=== PATIENT | female | born 1975 | race Caucasian/White ===

== ENCOUNTER 2022-09-08 12:04 | Emergency (ER) | payer OTHER, SELFPAY ==
[2022-09-08 12:10] VITALS: BP 141/80; PULSE 91; RESP 15; TEMP 36.4; O2SAT 97; BMI 28.6
--- NOTE | 2022-09-08 14:10 | DI.CT.S_ITS ---
PROCEDURE: CT HEAD/BRAIN WO CON INDICATIONS: Sudden, intermittent and severe headache TECHNIQUE: Noncontrast 4.5 mm thick angled axial sections acquired from the foramen magnum to the vertex, with coronal and sagittal reformats. For radiation dose reduction, the following was used: automated exposure control, adjustment of mA and/or kV according to patient size. COMPARISON: None. FINDINGS: Image quality: Excellent. CSF spaces: Basal cisterns are patent. No extra-axial fluid collections. Ventricles are normal in size and shape. Brain: No midline shift. No intracranial masses or hemorrhage. Walters-white matter interface is normal. Skull and face: Calvarium and visualized facial bones are intact, without suspicious lesions. Sinuses: Visualized sinuses and mastoids are clear. IMPRESSION: Normal for age, source of current severe headache symptoms is not seen. Dictated by: Branden Fierro M.D. on 09/08/2022 at 14:52 Approved by: Branden Fierro M.D. on 09/08/2022 at 14:52
--- NOTE | 2022-09-08 14:13 | ED.HA ---
HPI - Headache <TOREY Weiner - Last Filed: 09/08/22 16:41> General Chief Complaint: Headache Stated Complaint: abnormal severe head pain t-3 Time Seen by Provider: 09/08/22 14:00 Mode of arrival: Ambulatory History of Present Illness HPI Narrative: This is a 47-year-old female presents to the emergency department with complaint of a sudden in the most severe headache she is ever had come on 3 days ago, she states it was focal on the left side of her head and she was at rest when it happened. States it was so severe and painful that she was scared. She states it went away afterwards. The next day she states it returned but it was on both sides of her head and then it had gone away. She denies any other associated symptoms, denies any headache symptoms at this time. Endorses a history of migraines but states this is much different. She states that she took some Tylenol and it did not do anything and typically Tylenol is what she takes for her migraine headaches home. She has vision changes, dizziness, lightheadedness, recent trauma, brain fog, ringing in her ear respiratory symptoms including congestion, sore throat or cough. Denies urinary frequency or urgency, has a history of a hysterectomy. Denies nausea vomiting, neck pain or history of hypertension. No other medical problems. Patient denies any other symptoms. States that she has had the smell of ammonia in her nose for approximately 1 month, states that she was looking this up online and was very scared for neurologic complications. She states this is why she came to the emergency department today. Related Data Previous Rx's Medication Instructions Recorded ondansetron 4 mg disintegrating 4 mg PO Q8H PRN nausea and 09/08/22 tablet vomiting #10 tabs Allergies Allergy/AdvReac Type Severity Reaction Status Date / Time No Known Drug Allergies Allergy Verified 09/08/22 12:10 Review of Systems <TOREY Weiner - Last Filed: 09/08/22 16:41> Review of Systems ROS Unobtainable: All systems reviewed & are unremarkable except as noted in HPI and below Patient History <TOREY Weiner - Last Filed: 09/08/22 16:41> Social History Smoking Status: Unknown if ever smoked Smoking Status: Unknown if ever smoked alcohol intake frequency: holidays/special occasions only Substance Use Type: does not use Exam <TOREY Weiner - Last Filed: 09/08/22 16:41> Narrative Exam Narrative: Reviewed vitals signs and nursing notes. General: cooperative, in no acute distress, well groomed HEENT: symmetrical facial expressions, moist mucous membranes, neck is supple patient shoulders out cheeks, raise eyebrows, EOMI, PERRLA CV: regular rate and rhythm, warm extremities Respiratory: Without abnormal breath sounds, normal work of breathing, without tachypnea, hypoxia. GI: abdomen soft, nontender to palpation in all quadrants, nondistended, without masses, rebound tenderness or CVA tenderness bilaterally. MSK: moves all extremities, neurovascularly intact, no weakness, normal tone Skin: brisk capillary refill, without rash or wound Neuro: normal speech and cognition, A&O x3, ambulatory, clear speech, cranial nerves 2-12 are intact without deficit on exam Initial Vital Signs Initial Vital Signs: Vital Signs Temperature 97.6 F 09/08/22 12:10 Pulse Rate 91 H 09/08/22 12:10 Respiratory Rate 15 09/08/22 12:10 Blood Pressure 141/80 H 09/08/22 12:10 Pulse Oximetry 97 09/08/22 12:10 Oxygen Delivery Method Room Air 09/08/22 12:10 <Martita Watts DO - Last Filed: 09/10/22 12:29> Initial Vital Signs Initial Vital Signs: Vital Signs Temperature 97.6 F 09/08/22 12:10 Pulse Rate 91 H 09/08/22 12:10 Respiratory Rate 15 09/08/22 12:10 Blood Pressure 141/80 H 09/08/22 12:10 Pulse Oximetry 97 09/08/22 12:10 Oxygen Delivery Method Room Air 09/08/22 12:10 Course <TOREY Weiner - Last Filed: 09/08/22 16:41> Orders Ordered: Discontinued Medications Acetaminophen (Acetaminophen 325 Mg Tablet) 975 mg PO NOW ONE Stop: 09/08/22 14:11 Last Admin: 09/08/22 14:25 Dose: 975 mg Documented By: NR Dexamethasone (Dexamethasone 10 Mg/Ml Vial) 10 mg PO NOW ONE Stop: 09/08/22 14:11 Last Admin: 09/08/22 14:25 Dose: 10 mg Documented By: NR Ketorolac Tromethamine (Ketorolac 10 Mg Tablet) 10 mg PO NOW ONE Stop: 09/08/22 14:11 Last Admin: 09/08/22 14:25 Dose: 10 mg Documented By: NR Ondansetron HCl (Ondansetron 4 Mg Odt) 4 mg SL NOW ONE Stop: 09/08/22 14:11 Last Admin: 09/08/22 14:25 Dose: 4 mg Documented By: NR Vital Signs Vital signs: Vital Signs - 8 hr 09/08/22 12:10 09/08/22 15:45 Temperature 97.6 F Pulse Rate 91 H 60 Respiratory Rate 15 18 Blood Pressure 141/80 H 120/64 Pulse Oximetry 97 98 Oxygen Delivery Method Room Air Room Air <Martita Watts DO - Last Filed: 09/10/22 12:29> Orders Ordered: Discontinued Medications Acetaminophen (Acetaminophen 325 Mg Tablet) 975 mg PO NOW ONE Stop: 09/08/22 14:11 Last Admin: 09/08/22 14:25 Dose: 975 mg Documented By: NR Dexamethasone (Dexamethasone 10 Mg/Ml Vial) 10 mg PO NOW ONE Stop: 09/08/22 14:11 Last Admin: 09/08/22 14:25 Dose: 10 mg Documented By: NR Ketorolac Tromethamine (Ketorolac 10 Mg Tablet) 10 mg PO NOW ONE Stop: 09/08/22 14:11 Last Admin: 09/08/22 14:25 Dose: 10 mg Documented By: NR Ondansetron HCl (Ondansetron 4 Mg Odt) 4 mg SL NOW ONE Stop: 09/08/22 14:11 Last Admin: 09/08/22 14:25 Dose: 4 mg Documented By: NR Vital Signs Vital signs: Vital Signs - 8 hr 09/08/22 12:10 09/08/22 15:45 Temperature 97.6 F Pulse Rate 91 H 60 Respiratory Rate 15 18 Blood Pressure 141/80 H 120/64 Pulse Oximetry 97 98 Oxygen Delivery Method Room Air Room Air MDM - Headache <TOREY Weiner - Last Filed: 09/08/22 16:41> Lab Data Labs: Lab Results 09/08/22 Range/Units 14:55 SARS-CoV-2 (PCR) Negative (Negative) Influenza A (RT-PCR) Flu a negative (NEGATIVE) Influenza B (RT-PCR) Flu b negative (NEGATIVE) RSV (PCR) Negative (Negative) Imaging Data CT scan - head: Radiologist's Impression: PROCEDURE:? CT HEAD/BRAIN WO CON ? INDICATIONS:? Sudden, intermittent and severe headache ? TECHNIQUE:? Noncontrast 4.5 mm thick angled axial sections acquired from the foramen magnum to the vertex, with coronal and sagittal reformats.? For radiation dose reduction, the following was used:? automated exposure control, adjustment of mA and/or kV according to patient size.? ? COMPARISON:? None. ? FINDINGS:? Image quality:? Excellent.? ? CSF spaces:? Basal cisterns are patent.? No extra-axial fluid collections.? Ventricles are normal in size and shape.? ? Brain:? No midline shift.? No intracranial masses or hemorrhage.? Walters-white matter interface is normal.? ? Skull and face:? Calvarium and visualized facial bones are intact, without suspicious lesions.? ? Sinuses:? Visualized sinuses and mastoids are clear.? ? IMPRESSION:? Normal for age, source of current severe headache symptoms is not seen. ? ? Dictated by: Branden Fierro M.D. on 09/08/2022 at 14:52 ? ? Approved by: Branden Fierro M.D. on 09/08/2022 at 14:52 ? MDM Narrative Medical decision making narrative: Chief Complaint: Severe headache 3 days ago Independent historian: Patient Differential diagnoses include but are not limited to: Subarachnoid hemorrhage, meningitis, AVM, vasculitis, vascular occlusion, complicated migraine, acute viral illness, giant cell arteritis Giant cell arteritis considered, but thought unlikely given lack of unilateral findings, pain in congregational, or unilateral vision changes. Other diagnosis considered include infectious causes, spontaneous hemorrhage, vascular occlusion, vasculitis, or venous thrombosis. They are without any focal deficits to suggest this. Other serious diagnoses considered unlikely given lack of red flag findings such as sudden onset, increasing frequency, facial weakness, or other sensation change or weakness. They are not immunocompromised, or with active malignancy, anticoagulation, systemic signs of illness (fever, chills, stiff neck, or rash), focal neurologic findings, or recent trauma. This is most likely (migraine, could be opthalmic, tension, hormonal, dehydration, viral illness, or muscle strain. There was no aura, and patient improved over their course in the ER. They were given strict return precautions for any altered mental status, fever, weakness, paresthesia, incontinence, or pain out of proportion to return to the emergency department for another evaluation. I have independently reviewed the patient's vital signs and nursing notes as well as prior records if available. Pertinent lab findings reviewed: Respiratory PCR is negative for all tested viruses Pertinent Imaging reviewed: CT head without contrast is negative for acute abnormality Course of care: Was discussed with Dr. Watts, attending ED provider who agrees with plan. Patient's symptoms were treated with dexamethasone, Tylenol, Zofran and Toradol. She is encouraged to stay hydrated, respiratory PCR is negative for tested viruses. Discussed that this is most likely a tension/cluster headache. Patient's symptoms improved with the medications that were given. She states that she feels much better and it was starting to release, she is grateful for her care. She is p.o. tolerant. She is given a prescription of Zofran, encouraged to use Tylenol and ibuprofen was Zofran for her next migraine/headache especially if it is more painful. Her CT head was negative for acute intracranial abnormality. Her blood pressure within normal ranges. Social considerations that may affect disposition: none Questions are addressed and there is agreement with the plan and for follow-up. Patient is appropriate for outpatient management. MIPS: This encounter doesn't have any diagnosis' associated with MIPS criteria. <Martita Watts, DO - Last Filed: 09/10/22 12:29> Lab Data Labs: Lab Results 09/08/22 Range/Units 14:55 SARS-CoV-2 (PCR) Negative (Negative) Influenza A (RT-PCR) Flu a negative (NEGATIVE) Influenza B (RT-PCR) Flu b negative (NEGATIVE) RSV (PCR) Negative (Negative) Discharge Plan Departure Patient Disposition: Home Clinical Impression: Tension headache Instructions: DI for Migraine, DI for Hormonal and Tension Headaches Activity Restrictions/Additional Instructions: *You have been diagnosed with a complicated type of headache that comes on suddenly and is intense, these are often tension or cluster headaches. The next time this happens for you, please take your Tylenol, take ibuprofen with that, and take a dissolvable Zofran tab. Sometimes this is enough to prevent this from getting worse. Drink a full glass of water, rest, and see if your symptoms improve. Please follow-up with the regular doctor about these headaches and talk about possible treatment options and or follow-up options for the future. The CT does not show any dangerous findings in your brain. No masses or hemorrhages. This is good news. I hope you feel better soon, thank you for your patience today. We will call you if the COVID/influenza test is positive. I wish you the best. *What to do: *Please continue to take your regular medications as directed. [ x] New medication prescriptions sent to your pharmacy: [ [facility] [address]] [ ] New medication written as a paper prescription [ ] No new medications given *Please follow up with your primary care provider in 2-3 days, call for an appointment. Let them know you were seen in the Emergency Department and that we asked that you be seen for follow-up. We will electronically transmit a record of today's note if your PCP is in our system *If you do not have a primary care provider please contact [phone] to establish care with one of [facility] primary care providers. *Return to Emergency Department if you should have any new, worsening, or concerning symptoms, such as [fever greater than 101F, chills, worsening pain, persistent vomiting or other bothersome symptoms]. Prescriptions: New ondansetron 4 mg tablet,disintegrating 4 mg PO Q8H PRN (Reason: nausea and vomiting) Qty: 10 0RF Stand Alone Forms: Patient Portal/API <Martita Watts DO - Last Filed: 09/10/22 12:29> Cosign ED Attending Cosshadyature Attestation: I was immediately available in the department for consultation. Case was discussed, agree with plan. Supervised by Martita Watts DO
[2022-09-08] MEDS: ONDANSETRON 4 MG ODT SL (14:25)
[2022-09-08] MEDS: DEXAMETHASONE 10 MG/ML VIAL PO (14:25)
[2022-09-08] MEDS: ACETAMINOPHEN 325 MG TABLET 975 MG PO (14:25)
[2022-09-08] MEDS: KETOROLAC 10 MG TABLET PO (14:25)
[2022-09-08 15:45] VITALS: BP 120/64; PULSE 60; RESP 18; O2SAT 98
[2022-09-08 15:45] LABS: Influenza A - CEPHEID Flu A NEGATIVE (NEGATIVE); Influenza B - CEPHEID Flu B NEGATIVE (NEGATIVE); Respiratory Syncytial Virus Negative (Negative)
[2022-09-08 15:58] LABS: COVID-19 CEPHEID 4-PLEX PCR Negative (Negative)
== END 2022-09-08 15:46 | disposition home or self-care (01) ==
PROVIDERS: Emergency Provider Nurse Practitioner Critical Care Medicine
DX: G44.209 Tension-type headache, unspecified, not intractable (principal); Z20.822 Contact with and (suspected) exposure to COVID-19
CPT/HCPCS: 0241U; 70450; 99284; J1100

== ENCOUNTER → 2022-10-06 15:29 | Outpatient (CLI) | payer OTHER, SELFPAY ==
--- NOTE | 2022-10-06 15:32 | DI.MG.S_ITS ---
BILATERAL DIGITAL SCREENING MAMMOGRAM 3D/2D WITH CAD: 10/06/2022 CLINICAL: Routine screening. Family history of breast cancer. No prior exams were available for comparison. Both breasts are heterogeneously dense, which may obscure small masses (category c / 51-75% glandular tissue). Current study was also evaluated with a Computer Aided Detection (CAD) system. No significant masses, calcifications, or other findings are seen in either breast. IMPRESSION: NEGATIVE There is no mammographic evidence of malignancy. A 1 year screening mammogram is recommended. Based on Tyrer-Cuzick model (a risk assessment model), the patient's lifetime risk is 30.7% and her 10 year risk is 6.2%. If a patient has an elevated risk, a more comprehensive evaluation should be considered and/or a referral to a genetic counselor. The [place] [employer], [employer], and NCCN Guidelines advise the consideration of Breast MRI as an adjunct to screening mammography in patients whose Lifetime risk to develop breast cancer is 20% or higher. This exam was interpreted at Station ID: [id number]. NOTE: For mammograms, a report in lay terms will be sent to the patient. Approximately 15% of breast malignancies will not be visualized mammographically. In the management of a palpable breast mass, a negative mammogram must not discourage biopsy of a clinically suspicious lesion. Electronically Signed By: Nilton wagner/betty:10/06/2022 17:08:39 letter sent: Normal Exam ACR BI-RADS Category 1: Negative [id number]
== END ==
PROVIDERS: PCP Nurse Practitioner Primary Care; Referring Provider Nurse Practitioner Primary Care; Visit Provider Nurse Practitioner Primary Care
DX: Z12.31 Encounter for screening mammogram for malignant neoplasm of breast (principal); Z80.3 Family history of malignant neoplasm of breast
CPT/HCPCS: 77063; 77067

== ENCOUNTER → 2024-09-10 14:50 | Outpatient (CLI) | payer OTHER, SELFPAY ==
--- NOTE | 2024-09-10 14:53 | DI.MG.S_ITS ---
MM screening mammo BI: 09/10/2024. BI-RADS: 1 CLINICAL: 49-year old female for bilateral screening mammogram. Tyrer-Cuzick lifetime risk of 34.0%. Current reported family history of breast cancer: mother. PRIOR EXAMS 10/06/2022, 10/16/2017. MAMMOGRAPHY TECHNIQUE: 2D and 3D (tomosynthesis) digital mammographic views obtained, with additional images as needed for full coverage. Current study was also evaluated with a Computer Aided Detection (CAD) system. DENSITY C. The breasts are heterogeneously dense, which may obscure small masses. MAMMOGRAPHY FINDINGS Bilateral: No suspicious mass, asymmetry, microcalcification, or other abnormality seen. No significant change from comparison. IMPRESSION: * No evidence of malignancy. RECOMMENDATIONS Bilateral * According to the Tyrer-Cuzick Risk Assessment Model, based on the information provided your patient has a greater than 20% lifetime risk for developing breast cancer. Consider supplemental screening with breast MRI and participation in a high risk screening program. * Annual screening mammography. OVERALL ASSESSMENT CATEGORY BI-RADS-1: Negative. The [employer] recommends annual screening mammography beginning at age 40 for women with average risk of breast cancer. ELECTRONICALLY SIGNED: Darling Shelton M.D. on 09/10/2024 at 04:21:58 PM PT Interpreting Station ID: [id number]
== END ==
LOC: MAMMO 14:53
PROVIDERS: PCP Nurse Practitioner Primary Care; Referring Provider Nurse Practitioner Primary Care; Visit Provider Nurse Practitioner Primary Care
DX: Z12.39 Encounter for other screening for malignant neoplasm of breast (principal); Z80.3 Family history of malignant neoplasm of breast
CPT/HCPCS: 77063; 77067

== ENCOUNTER 2025-03-15 05:51 | Emergency (ER) | payer OTHER, SELFPAY ==
[2025-03-15 06:01] VITALS: BP 123/77; PULSE 68; RESP 18; TEMP 37.2; O2SAT 99; BMI 28.1
[2025-03-15 06:26] LABS: Add Manual Diff / Slide Review NO; Hematocrit 44.4 % (36-46); Hemoglobin 14.7 g/dL (12.0-16.0); Lymphocytes Absolute Auto 3000 /uL (1100-4500); Mean Corpuscular HGB Conc 33.2 % (30-36); Mean Corpuscular Hemoglobin 30.5 PG (26-34); Mean Corpuscular Volume 91.7 fL (80-100); Platelet Count 276 X10^3/uL (150-400)
[2025-03-15] MEDS: KETOROLAC 30 MG/ML VIAL 15 MG IV (06:35)
[2025-03-15] MEDS: ONDANSETRON 4 MG/2 ML INJ IV (06:41)
[2025-03-15 06:49] LABS: Alanine Aminotransferase 27 IU/L (<35); Albumin 4.7 g/dL (3.5-5.0); Albumin Globulin Ratio 1.8 (1.0-2.8); Alkaline Phosphatase 75 U/L (38-126); Blood Urea Nitrogen 12 mg/dL (7-17); Calcium 9.2 mg/dL (8.4-10.2); Carbon Dioxide 22 mmol/L (22-32); Chloride 105 mmol/L (98-107); Estimated Glomerular Filt Rate > 60 mL/min (>60); Globulin 2.6 g/dL (1.7-4.1); Glucose 112 mg/dL (70-99); HEMOLYSIS < 15 (0-50); Lipase 78 U/L (23-300); Potassium 3.7 mmol/L (3.4-5.1); Sodium 140 mmol/L (137-145); Total Protein 7.3 g/dL (6.3-8.2)
--- NOTE | 2025-03-15 07:00 | PC.NURSE ---
pt able to lay down now after medication given, vomited x 1,
[2025-03-15 07:01] LABS: Ictotest Urine Negative (Negative)
[2025-03-15 07:03] LABS: Culture Indicated Urine Cult Not Indicated
--- NOTE | 2025-03-15 07:05 | ED.ABDPAIN ---
HPI - Abdominal Pain General Chief Complaint: Abdominal Pain Stated Complaint: Rt Side pain Time Seen by Provider: 03/15/25 06:39 Source: patient, RN notes reviewed and old records reviewed Mode of arrival: Ambulatory Limitations: no limitations History of Present Illness HPI narrative: 49-year-old female comes in with complaint of right-sided abdominal pain that started abruptly about 4:00 a.m. in the morning. Patient was up and sewing during that time. She states has not had similar symptoms in the past. Notes a little bit of flank pain but states it is mostly in the right lower quadrant. He has a little bit towards her hip flexor but not down her leg. Denies fevers or chills. Had some nausea but no vomiting. Denies any issues such as diarrhea or constipation, no black or bloody stools. No dysuria, urgency or frequency. No vaginal bleeding or discharge. Patient notes she has had a prior hysterectomy in 2018. Denies any other intra-abdominal surgeries. States no daily medications. Tried acetaminophen at home but was not helpful. Denies any drug allergies. No tobacco, occasional alcohol, no recreational drugs. Patient states she has not had similar symptoms in the past. Related Data Previous Rx's ?Medication ?Instructions ?Recorded hydrocodone 5 mg-acetaminophen 325 1 tab PO Q6H PRN pain #10 tabs 03/15/25 mg tablet ketorolac 10 mg tablet 10 mg PO Q8H PRN pain 5 days #10 03/15/25 tabs Allergies Allergy/AdvReac Type Severity Reaction Status Date / Time No Known Drug Allergies Allergy Verified 03/15/25 06:00 Review of Systems Review of Systems ROS Unobtainable: All systems reviewed & are unremarkable except as noted in HPI and below Patient History Social History Smoking Status: Never smoker Smoking Status: Never smoker alcohol intake frequency: holidays/special occasions only Exam Narrative Exam Narrative: GENERAL: Alert and oriented x three, female in mild distress HEENT: Head normocephalic, atraumatic, EOMI, pupils reactive, face symmetric, moist mucous membranes NECK: Supple, full range of motion CARDIOVASCULAR: Regular rate and rhythm without murmurs, rubs or gallops. RESPIRATORY: Breath sounds equal bilaterally, no wheezes rales or rhonchi. ABDOMEN: Soft, positive for right lower quadrant tenderness. Normoactive bowel sounds all 4 quadrants. No guarding or rebound, rigidity, no mass, no rash or skin changes. : No CVA tenderness EXTREMITIES: Normal range of motion, no clubbing or edema. Neurovascularly intact. Patient states and ambulates without issue. NEUROLOGICAL: Cranial nerves II through XII grossly intact. Moving all extremities SKIN: Warm, dry, no petechiae, no rashes or lesions. Initial Vital Signs Initial Vital Signs: Vital Signs Temperature 99 F 03/15/25 06:01 Pulse Rate 68 03/15/25 06:01 Respiratory Rate 18 03/15/25 06:01 Blood Pressure 123/77 03/15/25 06:01 Pulse Oximetry 99 03/15/25 06:01 Oxygen Delivery Method Room Air 03/15/25 06:01 Course Orders Ordered: Discontinued Medications Ketorolac Tromethamine (Ketorolac 30 Mg/Ml Vial) 15 mg IV NOW ONE Stop: 03/15/25 06:31 Last Admin: 03/15/25 06:35 Dose: 15 mg Documented By: KAYDEN Morphine Sulfate (Morphine 4 Mg/Ml Inj) 4 mg IV NOW ONE Stop: 03/15/25 09:02 Last Admin: 03/15/25 09:15 Dose: 4 mg Documented By: TRACIE Ondansetron HCl (Ondansetron 4 Mg/2 Ml Inj) 4 mg IV NOW PRN PRN Reason: Nausea And Vomiting Last Admin: 03/15/25 06:41 Dose: 4 mg Documented By: KAYDEN Ondansetron HCl (Ondansetron 4 Mg Odt) 4 mg PO NOW PRN PRN Reason: Nausea And Vomiting Vital Signs Vital signs: Vital Signs - 8 hr 03/15/25 06:01 Temperature 99 F Pulse Rate 68 Respiratory Rate 18 Blood Pressure 123/77 Pulse Oximetry 99 Oxygen Delivery Method Room Air MDM - Abdominal Pain Lab Data 03/15/25 06:18 03/15/25 06:18 Labs: Lab Results 03/15/25 03/15/25 Range/Units 06:18 06:32 WBC 9.4 (4.5-11.0) X10^3/uL RBC 4.84 (4.0-5.2) X10^6/uL Hgb 14.7 (12.0-16.0) g/dL Hct 44.4 (36-46) % MCV 91.7 (80-100) fL MCH 30.5 (26-34) PG MCHC 33.2 (30-36) % RDW 13.4 (11.6-14.8) % Plt Count 276 (150-400) X10^3/uL Neut % (Auto) 60.5 (50-75) % Lymph % (Auto) 31.9 (25-40) % [place] % (Auto) 5.8 (3-14) % Eos % (Auto) 1.4 L (2-4) % Baso % (Auto) 0.4 (0-2) % Neut # (Auto) 5700 (6758-1508) /uL Lymph # (Auto) 3000 (8931-7279) /uL [place] # (Auto) 500 (0-900) /uL Eos # (Auto) 100 (0-450) /uL Baso # (Auto) 0 (0-100) /uL Sodium 140 (137-145) mmol/L Potassium 3.7 (3.4-5.1) mmol/L Chloride 105 (98-107) mmol/L Carbon Dioxide 22 (22-32) mmol/L BUN 12 (7-17) mg/dL Creatinine 0.83 (0.52-1.04) mg/dL Estimated GFR > 60 (>60) mL/min BUN/Creatinine Ratio 14.5 (6-22) Glucose 112 H (70-99) mg/dL Calcium 9.2 (8.4-10.2) mg/dL Total Bilirubin 0.3 (0.2-1.3) mg/dL AST 32 (14-36) IU/L ALT 27 (<35) IU/L Alkaline Phosphatase 75 (38-126) U/L Total Protein 7.3 (6.3-8.2) g/dL Albumin 4.7 (3.5-5.0) g/dL Globulin 2.6 (1.7-4.1) g/dL Albumin/Globulin Ratio 1.8 (1.0-2.8) Lipase 78 (23-300) U/L Ur Bilirubin Confirm Negative (Negative) Urine RBC 0-1/hpf (0-5/HPF) Urine WBC None seen (0-5/HPF) Ur Squamous Epith Cells 1-5 /hpf (0-5/HPF) Urine Bacteria Occasional (0-1) (None) Urine Mucus 2+ H (Negative) Ur Culture Indicated? Cult not indicated Vol Urine Centrifuged 10ml (spun) Point of care testing: Urine Dip Bedside Urine Glucose Negative Bedside Urine Bilirubin + 1 Bedside Urine Ketone +/- 5 Urine Specific [place] 1.030 Bedside Urine Occult Blood +/- Bedside Urine pH 5.5 Bedside Urine Protein +/- 15 Bedside Urine Urobilinogen +/- 1mg Bedside Urine Nitrite - Negative Bedside Urine Leukocytes - Negative Esterase MDM Narrative Medical decision making narrative: Labs show normal white count hemoglobin and platelets, chemistries show glucose of 112 otherwise appropriate labs, AST ALT alk-phos lipase and bilirubin are normal. Point of care urine negative for nitrates negative for leuks. Urine micro shows 1 red cell and a 5 squamous occasional bacteria 2+ mucus. CT abdomen pelvis with contrast, peripherally enhanced 3.6 cm cystic lesion right lower quadrant right adnexal region with small amount of free fluid in the right pelvis finding favor to be ovarian in etiology such as a ruptured hemorrhagic cyst however fluid abuts a nondilated appendix and tip appendicitis not entirely excluded. Consider pelvic ultrasound for further evaluation. Pelvic ultrasound right ovary measures 3 x 6.6 by 3.9 cm simple cysts are present largest measures 2.5 cm left ovary is not visualized. Nonvisualized left ovary. Hysterectomy. No pathologic free abdominal or pelvic fluid. Patient received Toradol and Zofran 49-year-old female with right flank and anterior abdominal pain tender on her right lower quadrant. Symptoms seem most consistent with stone but do hurt or tenderness CT abdomen pelvis with contrast was obtained shows 1 red cell in her urine but labs are otherwise appropriate. Discharge Plan Departure Patient Disposition: Home Clinical Impression: Ovarian cyst Qualifiers: Laterality: right Qualified Code(s): N83.201 - Unspecified ovarian cyst, right side Instructions: DI for Ovarian Cyst Activity Restrictions/Additional Instructions: Your workup today does show a right ovarian cyst, please follow up to make sure this resolves. 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 Your initial imaging on CT showed questionable tip appendicitis but the ovary touches this area and I suspect this is more inflammation and not a true infection as the rest of the appendix was normal. That has a prescription for Toradol included. Do not take NSAIDs such as Aleve, ibuprofen or naproxen with this medication. Take medication as prescribed. This medication can make you sleepy do not drive, perform hazardous activities or make any major decisions while taking it. This medication will make you constipated please take a stool softener once to twice daily until stools are soft and regular. Prescription sent to [facility] in [place]. Please return if you have fevers, rapidly worsening or new abdominal back or flank pain, persistent vomiting, black or bloody stools, vaginal bleeding going through more than a pad or tampon an hour or other new or concerning changes. Prescriptions: New hydrocodone-acetaminophen 5-325 mg tablet 1 tab PO Q6H PRN (Reason: pain) Qty: 10 0RF ketorolac 10 mg tablet 10 mg PO Q8H PRN (Reason: pain) 5 Days Qty: 10 0RF Referrals: Neha Dietrich ARNP [Primary Care Provider, Nursing] Nba Arnold MD [Physician, HEALTH CARE LIAISON] Stand Alone Forms: Patient Portal/API
--- NOTE | 2025-03-15 07:13 | DI.CT.S_ITS ---
PROCEDURE: CT ABDOMEN PELVIS W CON INDICATIONS: R flank/RLQ pain, tender, stone vs appy TECHNIQUE: After the administration of intravenous contrast, axial sections acquired from the lung bases to the pubic symphysis. Coronal and sagittal reformats were performed. For radiation dose reduction, the following was used: automated exposure control, adjustment of mA and/or kV according to patient size. COMPARISON: None. FINDINGS: Image quality: Diagnostic. Lower Chest: No significant findings. ABDOMEN: Liver: No solid mass. Gallbladder: No radiopaque gallstones or wall thickening. Biliary ducts: No biliary dilation. Pancreas: No ductal dilation. Spleen: Size is within normal limits. Adrenal Glands: No adrenal nodules. Kidneys and Ureters: No hydronephrosis. No solid mass. No complex renal cystic lesion which requires follow up. Stomach and Bowel: Normal colonic caliber, without significant wall thickening. Appendix is nondilated. Small bowel loops are nondilated. Peritoneum: No abnormal intraperitoneal fluid. No free air. Ventral Wall: No significant ventral hernia. Abdominal Nodes: No retroperitoneal or mesenteric adenopathy by size criteria. Vessels: Aorta and inferior vena cava are normal in size. PELVIS: Pelvic Organs: Right adnexal 3.6 cm cyst with small amount of fluid in the right adnexal region. Status post hysterectomy. Left ovary appears normal. Bladder: No bladder wall thickening, accounting for underdistention. Pelvic Nodes: No enlarged lymph nodes. Miscellaneous: No inguinal hernias are seen. Bones: No aggressive osseous abnormality. IMPRESSION: Peripherally enhancing 3.6 cm cystic lesion is seen in the right lower quadrant/right adnexal region with a small amount of free fluid in the right pelvis. Finding is favored to be ovarian in etiology such as a ruptured hemorrhagic cyst. However, the fluid also abuts a nondilated appendix, and tip appendicitis is not entirely excluded. Consider pelvic ultrasound for further evaluation. Approved by: Tenzin Blair M.D. on 03/15/2025 at 7:58
--- NOTE | 2025-03-15 08:02 | DI.US.S_ITS ---
PROCEDURE: US PELVIC COMPLETE INDICATIONS: R cyst, ? tip appendicitis, CT report TECHNIQUE: Real-time scanning was performed of the pelvic organs, with image documentation. Additional endovaginal scanning was necessary due to incomplete visualization of the adnexal and endometrial structures by transabdominal scanning. COMPARISON: None. FINDINGS: Uterus: Hysterectomy Ovaries: Right ovary measures 3.0 x 6.6 x 3.9 cm. 41.4 cc. Simple cysts are present, largest measures 3 5 cm. Left ovary is not visualized. Other: No pathologic free abdominal or pelvic fluid. IMPRESSION: Right ovarian simple cysts. Nonvisualized left ovary. Hysterectomy. Approved by: Tk Baron M.D. on 03/15/2025 at 8:22
[2025-03-15] MEDS: MORPHINE 4 MG/ML INJ IV (09:15)
[2025-03-15 09:52] VITALS: BP 137/74; PULSE 93; O2SAT 100
== END 2025-03-15 10:25 | disposition home or self-care (01) ==
PROVIDERS: Emergency Medicine; Emergency Provider Emergency Medicine; PCP Nurse Practitioner Primary Care
DX: N83.201 Unspecified ovarian cyst, right side (principal)
CPT/HCPCS: 36415; 74177; 76856; 80053; 81003; 81015; 83690; 85025; 93976; 96374; 96375; 99284; J1885; J2272; J2405; Q9967